=== PATIENT | female | born 1965 | race Two or more races ===

== ENCOUNTER 2021-05-18 11:32 | Emergency (ER) | payer MEDICAID, OTHER ==
[~2021-05-18] VITALS: Ht 165.1 cm; Wt 88.9 kg
[2021-05-18 11:37] VITALS: BP 141/77
[2021-05-18] MEDS ORDERED: HYDROcodone-ACET 5/325MG TAB PO ONE (12:30)
[2021-05-18] MEDS ORDERED: IBUP800T27 PO (12:33)
[2021-05-18] MEDS ORDERED: METH750T22 PO (12:33)
== END 2021-05-18 12:46 | disposition home or self-care (01) ==
LOC: ER 11:32
DX: S29.011A Strain of muscle and tendon of front wall of thorax, initial encounter (principal); E11.9 Type 2 diabetes mellitus without complications; E78.5 Hyperlipidemia, unspecified; I10 Essential (primary) hypertension; X50.1XXA Overexertion from prolonged static or awkward postures, initial encounter; Y93.89 Activity, other specified; Y92.89 Other specified places as the place of occurrence of the external cause; Y99.8 Other external cause status
CPT/HCPCS: 71101

== ENCOUNTER 2021-11-30 14:02 | Emergency (ER) | payer MEDICAID ==
[~2021-11-30] VITALS: Ht 162.6 cm; Wt 85.3 kg
[~2021-11-30 14:02] MED LIST: IBUP800T27 PO; METH750T22 PO
[2021-11-30 15:57] VITALS: BP 154/73
[2021-11-30] MEDS ORDERED: KETOROLAC TROMETH 60MG/2ML VIAL IM ONE (16:30)
[2021-11-30] MEDS ORDERED: GABA300C10 PO (16:53)
[2021-11-30] MEDS ORDERED: TRAM-297 PO (16:53)
== END 2021-11-30 17:24 | disposition home or self-care (01) ==
LOC: ER 14:02
DX: M47.817 Spondylosis without myelopathy or radiculopathy, lumbosacral region (principal); M54.16 Radiculopathy, lumbar region; M51.37 Other intervertebral disc degeneration, lumbosacral region; I10 Essential (primary) hypertension; E11.9 Type 2 diabetes mellitus without complications; E78.5 Hyperlipidemia, unspecified; Z79.899 Other long term (current) drug therapy; Z79.1 Long term (current) use of non-steroidal anti-inflammatories (NSAID); Z88.0 Allergy status to penicillin
CPT/HCPCS: 72100; 82962; 96372; 99283; J1885